=== PATIENT | male | born 1965 | race African-American/Black ===

== ENCOUNTER 2024-12-27 10:50 | Inpatient (IN) | payer OTHER ==
[~2024-12-27] VITALS: Ht 175.3 cm; Wt 92.5 kg
[2024-12-27] VITALS (15 sets, daily range): BP systolic 102–132; BP diastolic 51–105; PULSE 78–117; RESP 13–20; TEMP 36.6; O2SAT 95–100
[2024-12-27 11:40] LABS: BASOPHILS % 0.6 % (0.0-2.0); DIFFERENTIAL COMMENT 0; EOSINOPHILS % 1.5 % (0.0-5.0); HEMATOCRIT. 42.9 % (42.0-52.0); HEMOGLOBIN. 14.3 g/dL (14.0-18.0); LYMPHOCYTES % 40.9 % (20.0-50.0); MEAN CORPUSCULAR HEMOGLOBIN 30.8 pg (28.0-32.0); MEAN CORPUSCULAR HGB CONC 33.3 g/dL (31.0-37.0); MEAN CORPUSCULAR VOLUME 92.6 fL (80.0-94.0); MEAN PLATELET VOLUME 10.5 fl (7.4-10.4); MONOCYTES % 8.2 % (2.0-8.0); NEUTROPHILS % 48.8 % (40.0-76.0); PLATELET 125 x1000/uL (130-400); RED BLOOD CELL COUNT 4.63 mill/uL (4.7-6.1); RED CELL DISTRIBUTION WIDTH 14.9 % (11.6-14.6)
[2024-12-27 11:46] LABS: CHLORIDE 109 mEq/L (98-107); POTASSIUM 4.2 mEq/L (3.5-5.1); SODIUM 144 mEq/L (136-145)
[2024-12-27 11:47] LABS: CARBON DIOXIDE 27 mEq/L (21-32)
[2024-12-27 11:48] LABS: CALCIUM 9.2 mg/dL (8.7-10.4)
[2024-12-27 11:52] LABS: CREATININE 1.2 mg/dL (0.6-1.3); GLUCOSE 107 mg/dL (70-105)
[2024-12-27 11:53] LABS: UREA NITROGEN BLOOD 13 mg/dL (9-23)
[2024-12-27 11:58] LABS: TROPONIN I HIGH SENSITIVITY 2438 ng/L (3.0-53)
[2024-12-27] MEDS: ENOXAPARIN 80MG/0.8ML SYR SUBCUT ONE (12:11)
[2024-12-27] MEDS: ASPIRIN 81MG EC TABLET PO SCH (12:47)
[2024-12-27] MEDS: DILTIAZEM HCL 5MG/ML 5ML VIAL IV NR (12:48)
[2024-12-27] MEDS ORDERED: DILTIAZEM HCL 125 MG in DEXT 5% WATER 100 ML IV PRN (13:00)
[2024-12-27] MEDS: DILTIAZEM HCL 125 MG in DEXT 5% WATER 100 ML IV PRN (13:14)
[2024-12-27] MEDS: METOPROLOL TARTRATE 25MG TABLET PO ONE (13:25)
[2024-12-27 13:35] LABS: T4 FREE 0.87 ng/dL (0.89-1.76); THYROID STIMULATING HORMONE 0.64 uIU/mL (0.55-4.78)
[2024-12-27] MEDS: NITROGLYCERIN OINT 1GM/INCH UDPKT TD SCH (14:20)
[2024-12-27] MEDS ORDERED: NALOXONE HCL 0.4MG/ML VIAL IV PRN (14:30)
[2024-12-27] MEDS ORDERED: HYDROCODONE/ACETAMINOPHEN 5/325MG TABLET PO PRN (14:30)
[2024-12-27] MEDS ORDERED: IPRATROPIUM/ALBUTEROL 0.5-3(2.5)MG/3ML NEB HHN PRN (14:30)
[2024-12-27] MEDS ORDERED: ACETAMINOPHEN 325MG TABLET PO PRN (14:30)
[2024-12-27] MEDS ORDERED: ONDANSETRON HCL 4MG/2ML INJ IV PRN (14:30)
[2024-12-27 16:28] LABS: CLARITY URINE CLEAR (CLEAR); COLOR URINE YELLOW (YELLOW); GLUCOSE URINE NEGATIVE (NEGATIVE); KETONES URINE 1+ (NEGATIVE); LEUKOCYTE ESTERASE URINE NEGATIVE (NEGATIVE); NITRITE URINE NEGATIVE (NEGATIVE); OCCULT BLOOD URINE NEGATIVE (NEGATIVE); PROTEIN URINE NEGATIVE (NEGATIVE); SPECIFIC GRAVITY URINE 1.026 (1.005-1.030)
[2024-12-27 16:46] LABS: *AMPHETAMINES SCREEN URINE NEGATIVE (NEGATIVE); *BARBITURATES SCREEN URINE NEGATIVE (NEGATIVE); *BENZODIAZEPINES SCREEN URINE NEGATIVE (NEGATIVE); *COCAINE SCREEN URINE NEGATIVE (NEGATIVE); CANNABINOID URINE SCREEN NEGATIVE (NEGATIVE); METHADONE URINE SCREEN NEGATIVE (NEGATIVE); OPIATES URINE SCREEN NEGATIVE (NEGATIVE); PHENCYCLIDINE URINE SCREEN NEGATIVE (NEGATIVE)
[2024-12-27 16:47] LABS: ECSTASY MDMA SCREEN URINE NEGATIVE (NEGATIVE)
[2024-12-27 16:56] LABS: TROPONIN I HIGH SENSITIVITY 4420 ng/L (3.0-53)
[2024-12-27 18:55] LABS: TROPONIN I HIGH SENSITIVITY 5847 ng/L (3.0-53)
[2024-12-27] MEDS: METOPROLOL TARTRATE 25MG TABLET PO SCH (21:24)
[2024-12-27] MEDS: ATORVASTATIN CALCIUM 40MG TABLET PO SCH (21:24)
[2024-12-27] MEDS ORDERED: LISI20TA31 MT (22:01)
[2024-12-27] MEDS ORDERED: METO25TA6 MT (22:01)
[2024-12-27] MEDS ORDERED: ASPI-1497 MT (22:01)
[2024-12-27] MEDS ORDERED: LIP40 MT (22:01)
[2024-12-27 23:51] LABS: HEPATITIS B SURFACE ANTIGEN NEGATIVE (Negative)
[2024-12-28] VITALS (64 sets, daily range): BP systolic 97–191; BP diastolic 64–108; PULSE 56–108; RESP 9–22; TEMP 36.5–36.8; O2SAT 85–100
[2024-12-28 00:12] LABS: HEPATITIS C AB NON REACTIVE (Neg) (Negative)
[2024-12-28] MEDS: ENOXAPARIN 40MG/0.4ML SYR SUBCUT NR ×2 (00:35→20:58)
[2024-12-28] MEDS: MAGNESIUM 1 G PREMIX 100 ML IV NR (01:32)
[2024-12-28 06:11] LABS: BASOPHILS % 0.6 % (0.0-2.0); DIFFERENTIAL COMMENT 0; EOSINOPHILS % 2.3 % (0.0-5.0); HEMATOCRIT. 39.5 % (42.0-52.0); HEMOGLOBIN. 13.2 g/dL (14.0-18.0); LYMPHOCYTES % 42.7 % (20.0-50.0); MEAN CORPUSCULAR HEMOGLOBIN 30.7 pg (28.0-32.0); MEAN CORPUSCULAR HGB CONC 33.3 g/dL (31.0-37.0); MEAN CORPUSCULAR VOLUME 92.1 fL (80.0-94.0); MEAN PLATELET VOLUME 11.3 fl (7.4-10.4); MONOCYTES % 9.5 % (2.0-8.0); NEUTROPHILS % 44.9 % (40.0-76.0); PLATELET 120 x1000/uL (130-400); RED BLOOD CELL COUNT 4.28 mill/uL (4.7-6.1); RED CELL DISTRIBUTION WIDTH 14.6 % (11.6-14.6); WHITE BLOOD COUNT 5.3 x1000/uL (4.5-11.0)
[2024-12-28 06:22] LABS: CHLORIDE 106 mEq/L (98-107); POTASSIUM 3.6 mEq/L (3.5-5.1); SODIUM 140 mEq/L (136-145)
[2024-12-28 06:23] LABS: CALCIUM 8.6 mg/dL (8.7-10.4); CARBON DIOXIDE 24 mEq/L (21-32)
[2024-12-28 06:28] LABS: GLUCOSE 110 mg/dL (70-105); UREA NITROGEN BLOOD 10 mg/dL (9-23)
[2024-12-28 06:30] LABS: CHOLESTEROL 183 mg/dL (<200)
[2024-12-28] MEDS ORDERED: ASPIRIN/SOD BICARB/CITRIC ACID 324MG TAB EFF ONE (07:28)
[2024-12-28] MEDS ORDERED: HEPARIN 1000 UNITS/ML 10ML ONE ×2 (07:37→09:11)
[2024-12-28] MEDS ORDERED: IODIXANOL 320MG/ML 100 ML BOTTLE IV ONE ×3 (07:37→09:15)
[2024-12-28] MEDS ORDERED: LIDOCAINE HCL 1% 20ML VIAL ONE (07:38)
[2024-12-28 07:40] LABS: TROPONIN I HIGH SENSITIVITY 6721 ng/L (3.0-53)
[2024-12-28] MEDS ORDERED: MIDAZOLAM HCL 2 MG/2 ML VIAL ONE (08:01)
[2024-12-28] MEDS ORDERED: FENTANYL CITRATE/PF 50MCG/ML 2ML VIAL ONE (08:01)
[2024-12-28] MEDS ORDERED: CLOPIDOGREL 75MG TABLET ONE (08:55)
[2024-12-28] MEDS: ASPIRIN 81MG EC TABLET PO SCH (09:00)
[2024-12-28] MEDS ORDERED: NICARDIPINE 100MCG/ML 10ML VIAL (CATH LAB) IV ONE (09:00)
[2024-12-28] MEDS ORDERED: MORPHINE SULFATE 2 MG/ML INJ (NOT FOR IM USE) IV PRN (09:30)
[2024-12-28] MEDS ORDERED: ATROPINE SULFATE 1MG/10ML SYR IV PRN (09:30)
[2024-12-28] MEDS ORDERED: ACETAMINOPHEN 325MG TABLET PO PRN (09:30)
[2024-12-28] MEDS: CLOPIDOGREL 75MG TABLET PO ONE (09:50)
[2024-12-28] MEDS: SODIUM CHLORIDE 0.45% 1,000 ML IV ONE (10:22)
[2024-12-29] VITALS (21 sets, daily range): BP systolic 114–175; BP diastolic 75–121; PULSE 63–95; RESP 10–22; TEMP 36.1–36.6; O2SAT 95–100
[2024-12-29 05:43] LABS: BASOPHILS % 0.9 % (0.0-2.0); DIFFERENTIAL COMMENT 0; EOSINOPHILS % 2.3 % (0.0-5.0); HEMATOCRIT. 40.7 % (42.0-52.0); HEMOGLOBIN. 13.4 g/dL (14.0-18.0); LYMPHOCYTES % 33.2 % (20.0-50.0); MEAN CORPUSCULAR HEMOGLOBIN 30.3 pg (28.0-32.0); MEAN CORPUSCULAR HGB CONC 32.9 g/dL (31.0-37.0); MEAN CORPUSCULAR VOLUME 92.1 fL (80.0-94.0); MEAN PLATELET VOLUME 11.4 fl (7.4-10.4); MONOCYTES % 7.6 % (2.0-8.0); PLATELET 121 x1000/uL (130-400); RED BLOOD CELL COUNT 4.42 mill/uL (4.7-6.1); RED CELL DISTRIBUTION WIDTH 14.8 % (11.6-14.6); WHITE BLOOD COUNT 4.8 x1000/uL (4.5-11.0)
[2024-12-29 05:55] LABS: CHLORIDE 107 mEq/L (98-107); SODIUM 140 mEq/L (136-145)
[2024-12-29 05:56] LABS: CARBON DIOXIDE 25 mEq/L (21-32)
[2024-12-29 06:01] LABS: GLUCOSE 114 mg/dL (70-105); UREA NITROGEN BLOOD 7 mg/dL (9-23)
[2024-12-29 06:17] LABS: TROPONIN I HIGH SENSITIVITY 3330 ng/L (3.0-53)
[2024-12-29] MEDS: CLOPIDOGREL 75MG TABLET PO SCH (08:01)
[2024-12-29] MEDS: LISINOPRIL 20MG TABLET PO SCH (08:02)
[2024-12-29] MEDS: HYDRALAZINE 20MG/ML VIAL IV PRN (08:04)
[2024-12-29] MEDS ORDERED: ATORVASTATIN CALCIUM 40MG TABLET PO SCH (09:00)
[2024-12-29] MEDS ORDERED: METOPROLOL TARTRATE 25MG TABLET PO SCH (09:00)
[2024-12-29] MEDS ORDERED: ASPIRIN 81MG EC TABLET PO SCH (09:00)
[2024-12-29] MEDS: HYDRALAZINE HCL 25MG TABLET PO SCH (09:44)
[2024-12-29] MEDS ORDERED: ATROPINE SULFATE 1MG/10ML SYR ONE (12:53)
[2024-12-29] MEDS ORDERED: IODIXANOL 320 MG/ML 150ML BOTTLE IV ONE (12:53)
[2024-12-29] MEDS ORDERED: LIDOCAINE HCL 1% 20ML VIAL ONE (12:53)
[2024-12-29] MEDS ORDERED: HEPARIN 1000 UNITS/ML 10ML ONE (12:53)
[2024-12-29] MEDS ORDERED: FENTANYL CITRATE/PF 50MCG/ML 2ML VIAL ONE ×2 (13:16→14:18)
[2024-12-29] MEDS ORDERED: ASPIRIN/SOD BICARB/CITRIC ACID 324MG TAB EFF ONE (13:16)
[2024-12-29] MEDS ORDERED: MIDAZOLAM HCL 2 MG/2 ML VIAL ONE (13:17)
[2024-12-29] MEDS ORDERED: CLOPIDOGREL 75MG TABLET ONE (14:10)
[2024-12-29] MEDS ORDERED: HYDRALAZINE 20MG/ML VIAL ONE (14:22)
[2024-12-29] MEDS ORDERED: MORPHINE SULFATE 2 MG/ML INJ (NOT FOR IM USE) IV PRN (14:45)
[2024-12-29] MEDS ORDERED: CLOPIDOGREL 75MG TABLET PO ONE (14:45)
[2024-12-29] MEDS ORDERED: ATROPINE SULFATE 1MG/10ML SYR IV PRN (14:45)
[2024-12-29] MEDS ORDERED: ACETAMINOPHEN 325MG TABLET PO PRN (14:45)
[2024-12-29] MEDS ORDERED: ONDANSETRON HCL 4MG/2ML INJ IV PRN (14:45)
[2024-12-29] MEDS: AMLODIPINE 2.5MG TABLET PO SCH (15:07)
[2024-12-29] MEDS: SODIUM CHLORIDE 0.45% 1,000 ML IV SCH (15:08)
[2024-12-29] MEDS: ONDANSETRON HCL 4MG/2ML INJ IV PRN (16:33)
[2024-12-30 00:01] VITALS: BP 120/79; PULSE 88; RESP 17; TEMP 36.2; O2SAT 100
[2024-12-30 04:01] VITALS: BP 134/85; PULSE 66; RESP 17; TEMP 36.2; O2SAT 100
[2024-12-30 07:20] LABS: BASOPHILS % 0.4 % (0.0-2.0); DIFFERENTIAL COMMENT 0; EOSINOPHILS % 1.7 % (0.0-5.0); HEMATOCRIT. 38.2 % (42.0-52.0); HEMOGLOBIN. 12.7 g/dL (14.0-18.0); LYMPHOCYTES % 28.1 % (20.0-50.0); MEAN CORPUSCULAR HEMOGLOBIN 30.6 pg (28.0-32.0); MEAN CORPUSCULAR HGB CONC 33.4 g/dL (31.0-37.0); MEAN CORPUSCULAR VOLUME 91.6 fL (80.0-94.0); MEAN PLATELET VOLUME 11.1 fl (7.4-10.4); MONOCYTES % 8.6 % (2.0-8.0); NEUTROPHILS % 61.2 % (40.0-76.0); PLATELET 114 x1000/uL (130-400); RED BLOOD CELL COUNT 4.17 mill/uL (4.7-6.1); RED CELL DISTRIBUTION WIDTH 14.5 % (11.6-14.6)
[2024-12-30 07:25] LABS: CHLORIDE 106 mEq/L (98-107); SODIUM 140 mEq/L (136-145)
[2024-12-30 07:26] LABS: CALCIUM 8.6 mg/dL (8.7-10.4)
[2024-12-30 07:28] LABS: CREATININE 0.9 mg/dL (0.6-1.3)
[2024-12-30 07:29] LABS: GLUCOSE 103 mg/dL (70-105)
[2024-12-30 07:30] LABS: UREA NITROGEN BLOOD 10 mg/dL (9-23)
[2024-12-30 07:39] LABS: CARBON DIOXIDE 24 mEq/L (21-32)
[2024-12-30 08:00] VITALS: BP 115/61; PULSE 83; RESP 20; TEMP 36.7; O2SAT 9
[2024-12-30 09:22] LABS: TROPONIN I HIGH SENSITIVITY 3958 ng/L (3.0-53)
[2024-12-30] MEDS ORDERED: METO25TA6 PO (10:48)
[2024-12-30] MEDS ORDERED: LIP40 PO (10:48)
[2024-12-30] MEDS ORDERED: HYDR25TA78 PO (10:48)
[2024-12-30] MEDS ORDERED: AMLO2.5T45 PO (10:48)
[2024-12-30] MEDS ORDERED: LISI20TA31 PO (10:48)
[2024-12-30 12:00] VITALS: BP 123/89; PULSE 72; RESP 15; TEMP 36.8; O2SAT 98
[2024-12-30 12:50] VITALS: BP 123/89; PULSE 76; TEMP 98.3; O2SAT 100
== END 2024-12-30 14:34 | disposition home or self-care (01) | DRG 321 ==
LOC: ER 10:50 → EDBEDREQTM 12:21 → EDBEDREQ 12:21 → CVICU 13:09 → EDBEDREQTM 13:16 → EDBEDREQSVC 13:16 → 3WST 12-29 04:08
PROVIDERS: ADMIT Internal Medicine; ATTEND Internal Medicine
PROC: 027034Z Dilation of Coronary Artery, One Artery with Drug-eluting Intraluminal Device, Percutaneous Approach (ICD-10-PCS; principal; 2024-12-28)
PROC: 4A023N7 Measurement of Cardiac Sampling and Pressure, Left Heart, Percutaneous Approach (ICD-10-PCS; 2024-12-28)
PROC: B2111ZZ Fluoroscopy of Multiple Coronary Arteries using Low Osmolar Contrast (ICD-10-PCS; 2024-12-28)
PROC: 027036Z Dilation of Coronary Artery, One Artery with Three Drug-eluting Intraluminal Devices, Percutaneous Approach (ICD-10-PCS; 2024-12-29)
PROC: 4A023N7 Measurement of Cardiac Sampling and Pressure, Left Heart, Percutaneous Approach (ICD-10-PCS; 2024-12-29)
PROC: B2111ZZ Fluoroscopy of Multiple Coronary Arteries using Low Osmolar Contrast (ICD-10-PCS; 2024-12-29)
DX: I21.4 Non-ST elevation (NSTEMI) myocardial infarction (principal); D69.6 Thrombocytopenia, unspecified; I11.9 Hypertensive heart disease without heart failure; E78.5 Hyperlipidemia, unspecified; F17.210 Nicotine dependence, cigarettes, uncomplicated; I25.10 Atherosclerotic heart disease of native coronary artery without angina pectoris; I48.0 Paroxysmal atrial fibrillation; N28.9 Disorder of kidney and ureter, unspecified; Z79.82 Long term (current) use of aspirin; Z79.899 Other long term (current) drug therapy
CPT/HCPCS: 36415; 71045; 80048; 80061; 80305; 81003; 82465; 83036; 83735; 83880; 84439; 84443; 84481; 84484; 85025; 85347; 86705; 87340; 92928; 93005; 93306; 93454; 93458; 93923; 93970; 99291; A4606; C1760; C1769; C1874; C1887; C1893; J0360; J0461; J1644; J1650; J2250; J2405; J3010; J3475; J3490; J7060; Q9967; C1725

== ENCOUNTER 2025-01-05 10:14 | Inpatient (IN) | payer OTHER ==
[~2025-01-05] VITALS: Ht 175.3 cm; Wt 81.3 kg
[~2025-01-05 10:14] MED LIST: AMLO2.5T45 PO; ASPI-1497 MT; HYDR25TA78 PO; LIP40 MT; LIP40 PO; LISI20TA31 PO; METO25TA6 MT; METO25TA6 PO
[2025-01-05 10:56] LABS: BASOPHILS % 1.3 % (0.0-2.0); DIFFERENTIAL COMMENT 0; EOSINOPHILS % 2.5 % (0.0-5.0); HEMATOCRIT. 41.7 % (42.0-52.0); LYMPHOCYTES % 40.3 % (20.0-50.0); MEAN CORPUSCULAR HEMOGLOBIN 30.9 pg (28.0-32.0); MEAN CORPUSCULAR HGB CONC 33.6 g/dL (31.0-37.0); MEAN CORPUSCULAR VOLUME 91.9 fL (80.0-94.0); MEAN PLATELET VOLUME 10.5 fl (7.4-10.4); MONOCYTES % 7.5 % (2.0-8.0); NEUTROPHILS % 48.4 % (40.0-76.0); PLATELET 150 x1000/uL (130-400); RED BLOOD CELL COUNT 4.53 mill/uL (4.7-6.1); RED CELL DISTRIBUTION WIDTH 14.3 % (11.6-14.6); WHITE BLOOD COUNT 5.1 x1000/uL (4.5-11.0)
[2025-01-05 11:03] LABS: CHLORIDE 106 mEq/L (98-107); SODIUM 138 mEq/L (136-145)
[2025-01-05 11:04] LABS: CALCIUM 9.5 mg/dL (8.7-10.4); CARBON DIOXIDE 24 mEq/L (21-32)
[2025-01-05 11:09] LABS: CREATININE 0.9 mg/dL (0.6-1.3); GLUCOSE 91 mg/dL (70-105); UREA NITROGEN BLOOD 10 mg/dL (9-23)
[2025-01-05 11:10] LABS: TROPONIN I HIGH SENSITIVITY 39 ng/L (3.0-53)
[2025-01-05 13:30] VITALS: BP 137/85; PULSE 75; RESP 20; TEMP 36.7
[2025-01-05 13:30] LABS: TROPONIN I HIGH SENSITIVITY 35 ng/L (3.0-53)
[2025-01-05] MEDS: HYDRALAZINE HCL 25MG TABLET PO SCH (13:53)
[2025-01-05] MEDS: CLOPIDOGREL 75MG TABLET PO SCH (14:15)
[2025-01-05] MEDS ORDERED: IOHEXOL-350 100 ML BOTTLE ONE (15:06)
[2025-01-05 16:45] VITALS: BP 144/87; PULSE 90; RESP 20; TEMP 36.6; O2SAT 100
[2025-01-05] MEDS ORDERED: COR12 PO (17:05)
[2025-01-05] MEDS ORDERED: CLOP75TA33 PO (17:05)
[2025-01-05 20:00] VITALS: BP 125/82; PULSE 67; RESP 18; TEMP 36.6; O2SAT 99
[2025-01-05] MEDS: ATORVASTATIN CALCIUM 40MG TABLET PO SCH (21:00)
[2025-01-05] MEDS: AMLODIPINE 2.5MG TABLET PO SCH (21:00)
[2025-01-05] MEDS: METOPROLOL TARTRATE 25MG TABLET PO SCH (21:00)
[2025-01-06] VITALS: BP 113/67; PULSE 66; RESP 13; TEMP 36.7; O2SAT 99
[2025-01-06 04:00] VITALS: BP 112/66; PULSE 64; RESP 19; TEMP 36.8; O2SAT 99
[2025-01-06 07:51] VITALS: BP 130/99; PULSE 64; TEMP 98.3; O2SAT 99
[2025-01-06 08:00] VITALS: BP 136/84; PULSE 73; RESP 18; TEMP 36.7; O2SAT 100
[2025-01-06] MEDS: ASPIRIN 81MG EC TABLET PO SCH (08:46)
[2025-01-06] MEDS: LISINOPRIL 20MG TABLET PO SCH (08:46)
[2025-01-06] MEDS ORDERED: ATORVASTATIN CALCIUM 40MG TABLET PO SCH (09:00)
[2025-01-06] MEDS ORDERED: LISI20TA31 PO (09:44)
[2025-01-06] MEDS ORDERED: COR12 PO (09:44)
[2025-01-06] MEDS ORDERED: CLOP75TA33 PO (09:44)
[2025-01-06] MEDS ORDERED: LIP40 PO (09:44)
[2025-01-06] MEDS ORDERED: HYDR25TA78 PO (09:44)
[2025-01-06] MEDS ORDERED: AMLO2.5T45 PO (09:44)
[2025-01-06] MEDS ORDERED: LIP40 MT (09:44)
[2025-01-06] MEDS ORDERED: ASPI-1497 MT (09:44)
== END 2025-01-06 13:44 | disposition home or self-care (01) | DRG 293 ==
LOC: ER 10:14 → 3WST 11:16 → ENRESERV 12:55
PROVIDERS: ADMIT Internal Medicine; ATTEND Internal Medicine
DX: I11.0 Hypertensive heart disease with heart failure (principal); I27.20 Pulmonary hypertension, unspecified; E66.9 Obesity, unspecified; I48.0 Paroxysmal atrial fibrillation; I50.9 Heart failure, unspecified; I25.10 Atherosclerotic heart disease of native coronary artery without angina pectoris; E78.5 Hyperlipidemia, unspecified; Z79.82 Long term (current) use of aspirin; Z79.899 Other long term (current) drug therapy; Z95.5 Presence of coronary angioplasty implant and graft; I25.2 Old myocardial infarction; Z68.26 Body mass index [BMI] 26.0-26.9, adult
CPT/HCPCS: 36415; 71045; 71275; 80048; 84484; 85025; 85379; 93005; 99285; Q9967